=== PATIENT | male | born 1975 | race African-American/Black ===

== ENCOUNTER 2016-11-30 17:00 | Emergency (ER) | payer MEDICARE, MEDICAID ==
[~2016-11-30] VITALS: Ht 188 cm; Wt 80.0 kg
[2016-11-30 17:07] VITALS: Ht 188 cm; Wt 80.0 kg
--- NOTE | 2016-11-30 17:10 | ERA ---
ER Documentation Chief Complaint Date/Time DATE: 11/30/16 TIME: 17:10 Chief Complaint Anxiety HPI The patient is a 40-year-old male, presenting to the ER because of acute anxiety attack after smoking marijuana. He has similar symptoms previously, denies auditory, visual hallucination, homicidal, suicidal ideation. He denies neck pain, chest pain, dyspnea, abdominal pain, vomiting, dysuria, diarrhea. He denies smoking or drinking Past medical history: Anxiety, bipolar disorder ROS All systems reviewed and are negative except as per history of present illness. Medications Home Meds Active Scripts Hydroxyzine Hcl* (Atarax*) 50 Mg Tab, 50 MG PO Q8H Y for ANXIETY, #14 TAB Prov:CHAUNCEY CALZADA MD 11/30/16 Physical Exam Vitals Vital Signs Date Time Temp Pulse Resp B/P Pulse Ox O2 Delivery O2 Flow Rate FiO2 11/30/16 17:07 98.7 80 19 127/80 100 Physical Exam Const: No acute distress. Head: Atraumatic. Eyes: Normal Conjunctiva. ENT: Normal External Ears, Nose and Mouth. Neck: Full range of motion. No meningismus. Resp: Clear to auscultation bilaterally. Cardio: Regular rate and rhythm, no murmurs. Abd: Soft, non distended, normal bowel sounds, non tender. Skin: No petechiae or rashes. Back: No midline or flank tenderness. Ext: No cyanosis, or edema. Neur: Awake and alert. No focal deficit Psych: Anxious Results 24 hrs Current Medications Medications (Trade) Dose Ordered Sig/Basia Route PRN Reason Start Time Stop Time Status Last Admin Dose Admin Lorazepam (Ativan) 0.5 mg ONCE ONCE IM 11/30/16 17:30 11/30/16 17:31 Procedures/[facility] MEDICAL MAKING DECISION: The patient is a 40-year-old male, presenting with acute anxiety attack. He did not want Ativan p.o., he only wants Ativan injection. He was treated with Ativan 0.5 mg IM with good response. The differential diagnoses considered include but are not limited to acute anxiety attack, acute panic attack, decompensated psychiatric illness Departure Diagnosis: Primary Impression: Anxiety attack Condition: Good Comments I discussed the findings with the patient. I advised the patient to follow-up with the primary physician in about 1-2 days, sooner if needed and return if any concern. The patient's blood pressure was elevated (>120/80) but appears stable without evidence of hypertension emergency or urgency. The patient was counseled about the risks of hypertension and urged to pursue outpatient monitoring and therapy within a week with their primary care physician. CHAUNCEY CALZADA MD Nov 30, 2016 17:10
[2016-11-30] MEDS ORDERED: HYDR-845 PO (17:20)
[2016-11-30] MEDS ORDERED: LORAZEPAM 2 MG INJ IM ONE (17:30)
== END 2016-11-30 17:37 | disposition home or self-care (01) ==
LOC: E/R 17:00
DX: F41.9 Anxiety disorder, unspecified (principal); F17.210 Nicotine dependence, cigarettes, uncomplicated
CPT/HCPCS: 96372; 99284; J2060